=== PATIENT | male | born 1965 | race Caucasian/White ===

== ENCOUNTER 2019-05-09 10:03 | Emergency (ER) | payer SELFPAY ==
[2019-05-09 11:37] LABS: Hematocrit 37 % (42-52); Hemoglobin 12.5 g/dL (14.0-18.0); Mean Corpuscular HGB Conc 34 g/dL (31-36); Mean Corpuscular Hemoglobin 32 pg (27-31); Mean Corpuscular Volume 94 fL (80-94); Mean Platelet Volume 6.8 fL (7.4-10.4); Platelet Count 531 10^3/uL (150-450); Red Cell Distribution Width 15 % (10-15)
[2019-05-09 11:39] LABS: INR 1.33 (0.82-1.09)
[2019-05-09 11:55] LABS: ALT 180 U/L (7-52); Albumin 2.8 g/dL (3.2-5.2); Albumin/Globulin Ratio 0.7 (1-3); Alkaline Phosphatase 1270 U/L (34-104); BUN/Creatinine Ratio 12.7 (8-20); Blood Urea Nitrogen 17 mg/dL (6-24); CO2 Carbon Dioxide 22 mmol/L (22-32); Calcium 8.9 mg/dL (8.6-10.3); Chloride 101 mmol/L (101-111); EGFR African American 67.2 (>60); EGFR Non-African American 55.5 (>60); Globulin 3.8 g/dL (2-4); Glucose 115 mg/dL (70-100); Sodium 132 mmol/L (135-145); Total Protein 6.6 g/dL (6.4-8.9)
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
[2019-05-09] MEDS ORDERED: Iodixanol* (CONTRAST) 320 MG/ML 100 ML SDV IV ONE (12:02)
[2019-05-09 12:17] LABS: AST 203 U/L (13-39); Anion Gap 9 mmol/L (2-11); Potassium 3.7 mmol/L (3.5-5.0)
[2019-05-09 12:54] LABS: Acetaminophen < 15 mcg/mL
[2019-05-09] MEDS ORDERED: Piperacillin/Tazobac ADVAN(*) 3.375 GM in NS 0.9% 100 ML* 100 ML IVPB ONE (13:30)
[2019-05-09] MEDS ORDERED: Zosyn per Pharmacy* NOTE FOLLOW UP SCH (14:00)
[2019-05-09] MEDS ORDERED: NS 0.9% 100 ML* 100 ML ONE ×2 (14:06→14:27)
[2019-05-09] MEDS ORDERED: Zosyn per Pharmacy* NOTE FOLLOW UP PRN (14:12)
[2019-05-09 14:27] LABS: Hepatitis B Surface Antigen Nonreactive (Nonreactive)
[2019-05-09 14:44] LABS: Hepatitis B Surface Ab Not Immune (Immune); Hepatitis C Antibody Negative (Negative)
[2019-05-09] MEDS ORDERED: Zosyn 3.375 GM IV - ED ONCE IVPB ONE ×2 (15:00)
[2019-05-09 16:06] VITALS: BP 119/75
[2019-05-10 15:45] LABS: Hepatitis Be Antigen Negative (Negative)
[2019-05-10 17:05] LABS: Hepatitis Be Antibody Negative (Negative)
== END 2019-05-09 16:06 | disposition short-term general hospital (02) ==
LOC: ED 10:03
DX: E80.6 Other disorders of bilirubin metabolism (principal); K83.9 Disease of biliary tract, unspecified; Z87.891 Personal history of nicotine dependence
CPT/HCPCS: 36415; 70450; 74177; 80053; 80329; 85025; 85610; 86706; 86707; 86708; 86709; 86803; 87340; 87350; 96365; 99283; G0480; J2543; Q9967

== ENCOUNTER 2020-08-11 09:40 | Inpatient (IN) ==
[2020-08-11 10:45] LABS: Hematocrit 33 % (42-52); Hemoglobin 10.8 g/dL (14.0-18.0); Mean Corpuscular HGB Conc 33 g/dL (31-36); Mean Corpuscular Hemoglobin 30 pg (27-31); Mean Corpuscular Volume 92 fL (80-94); Mean Platelet Volume 7.3 fL (7.4-10.4); Platelet Count 483 10^3/uL (150-450); Red Blood Count 3.55 10^6 /uL (4.18-5.48); Red Cell Distribution Width 19 % (10-15); White Blood Count 9.1 10^3/uL (3.5-10.8)
[2020-08-11 11:01] LABS: Albumin 2.9 g/dL (3.2-5.2); Albumin/Globulin Ratio 1.2 (1-3); BUN/Creatinine Ratio 18.4 (8-20); Calcium 8.4 mg/dL (8.6-10.3); EGFR African American 110.2 (>60); EGFR Non-African American 91.1 (>60); Globulin 2.5 g/dL (2-4); Potassium 4.1 mmol/L (3.5-5.0); Total Bilirubin 0.6 mg/dL (0.2-1.0); Total Protein 5.4 g/dL (6.4-8.9)
[2020-08-11 11:03] LABS: Troponin I 0.01 ng/mL (<0.03)
[2020-08-11 11:05] LABS: ABS Basophils 0.1 10^3/ul (0-0.2); ABS Eosinophils 0.1 10^3/ul (0-0.6); ABS Lymphocytes 1.5 10^3/ul (1.0-4.8); ABS Monocytes 2.5 10^3/ul (0-0.8); ABS Neutrophils 4.8 10^3/ul (1.5-7.7); Eosinophil % 1.1 %; Lymphocyte % 16.4 %; Nucleated Red Blood Cells % 0.1
[2020-08-11] MEDS ORDERED: Iohexol 350 (CONTRAST) 500 ML MDV IV ONE (11:28)
[2020-08-11] MEDS ORDERED: cefTRIAXone 1 gm/50 mL NS BAG 1 GM/50 ML BAG IV ONE (13:57)
[2020-08-11] MEDS ORDERED: Polyethylene Glycol 3350 BTL 238 GM BTL PO PRN (13:58)
[2020-08-11 14:09] LABS: INR 1.65 (0.82-1.09)
[2020-08-11 14:36] LABS: Urine Appearance Clear; Urine Bilirubin Negative (Negative); Urine Blood Negative (Negative); Urine Color Yellow; Urine Glucose Negative (Negative); Urine Ketones Negative (Negative); Urine Nitrite Negative (Negative); Urine Protein Negative (Negative); Urine Specific Gravity 1.044 (1.010-1.030); Urine Urobilinogen Negative (Negative)
[2020-08-11 14:40] LABS: TSH Ultra Thyroid Stim Horm 1.87 mcIU/mL (0.34-5.60)
[2020-08-11] MEDS: Azithromycin 500 mg/250 ml NS 500 MG/250 ML BAG IVPB SCH (15:37)
[2020-08-12 07:01] LABS: BUN/Creatinine Ratio 19.1 (8-20); Calcium 8.1 mg/dL (8.6-10.3); EGFR African American 100.8 (>60); EGFR Non-African American 83.3 (>60)
[2020-08-12 07:11] LABS: Hematocrit 31 % (42-52); Hemoglobin 10.3 g/dL (14.0-18.0); Mean Corpuscular HGB Conc 33 g/dL (31-36); Mean Corpuscular Hemoglobin 31 pg (27-31); Mean Corpuscular Volume 91 fL (80-94); Mean Platelet Volume 7.3 fL (7.4-10.4); Platelet Count 499 10^3/uL (150-450); Red Blood Count 3.39 10^6 /uL (4.18-5.48); Red Cell Distribution Width 18 % (10-15); White Blood Count 9.5 10^3/uL (3.5-10.8)
[2020-08-12 08:30] LABS: ABS Basophils 0.1 10^3/ul (0-0.2); ABS Eosinophils 0.1 10^3/ul (0-0.6); ABS Lymphocytes 2.1 10^3/ul (1.0-4.8); ABS Monocytes 2.5 10^3/ul (0-0.8); ABS Neutrophils 4.7 10^3/ul (1.5-7.7); Eosinophil % 0.7 %; Lymphocyte % 21.7 %; Nucleated Red Blood Cells % 0.1
[2020-08-12] MEDS: Azithromycin 500 mg/250 ml NS 500 MG/250 ML BAG IVPB SCH (15:02)
[2020-08-12 17:00] LABS: C Reactive Protein 125.31 mg/L (<8.01)
[2020-08-12] MEDS: cefTRIAXone 1 gm/50 mL NS BAG 1 GM/50 ML BAG IVPB SCH (17:04)
[2020-08-12] MEDS: Albuterol HFA INHALER 8 gm MDI INH PRN (17:04)
[2020-08-13 10:27] LABS: Hematocrit 32 % (42-52); Hemoglobin 10.8 g/dL (14.0-18.0); Mean Corpuscular HGB Conc 33 g/dL (31-36); Mean Corpuscular Hemoglobin 30 pg (27-31); Mean Corpuscular Volume 91 fL (80-94); Mean Platelet Volume 7.2 fL (7.4-10.4); Platelet Count 627 10^3/uL (150-450); Red Blood Count 3.56 10^6 /uL (4.18-5.48); Red Cell Distribution Width 19 % (10-15); White Blood Count 11.6 10^3/uL (3.5-10.8)
[2020-08-13 10:31] LABS: INR 1.68 (0.82-1.09)
[2020-08-13] MEDS: Albuterol HFA INHALER 8 gm MDI INH PRN (10:38)
[2020-08-13 10:46] LABS: BUN/Creatinine Ratio 22.6 (8-20); Calcium 8.2 mg/dL (8.6-10.3); EGFR African American 102.1 (>60); EGFR Non-African American 84.4 (>60); Potassium 4.3 mmol/L (3.5-5.0)
[2020-08-13 11:46] LABS: ABS Basophils 0.1 10^3/ul (0-0.2); ABS Lymphocytes 1.7 10^3/ul (1.0-4.8); ABS Monocytes 2.3 10^3/ul (0-0.8); ABS Neutrophils 7.5 10^3/ul (1.5-7.7); Eosinophil % 0.2 %; Lymphocyte % 14.4 %; Nucleated Red Blood Cells % 0.2
[2020-08-13] MEDS: methylPREDNISolone 125 mg 2 ML VIAL IV SCH (12:14)
[2020-08-13] MEDS: Azithromycin 500 mg/250 ml NS 500 MG/250 ML BAG IVPB SCH (14:24)
[2020-08-13] MEDS: cefTRIAXone 1 gm/50 mL NS BAG 1 GM/50 ML BAG IVPB SCH (15:49)
[2020-08-13] MEDS ORDERED: Furosemide 20 mg/2 ml IV VIAL IV SLOW PU ONE (18:10)
[2020-08-13] MEDS ORDERED: Vancomycin 1,250 MG in NS 0.9% 250 ml 250 ML IVPB ONE (18:30)
[2020-08-13] MEDS ORDERED: Vancomycin per Pharmacy 1 EA NOTE FOLLOW UP PRN (18:53)
[2020-08-13] MEDS ORDERED: Albuterol 2.5mg/3 ml (0.083%) NEB.SOLN INH PRN (20:23)
[2020-08-13] MEDS: Cefepime 2 GM in Dextrose 2 GM/50 ML BAG IV SCH (21:41)
[2020-08-14] MEDS: methylPREDNISolone 125 mg 2 ML VIAL IV SCH ×2 (00:04→11:23)
[2020-08-14] MEDS: Vancomycin 1000 MG in NS 0.9% 250 ML IVPB SCH ×3 (02:03→19:15)
[2020-08-14 07:41] LABS: Hematocrit 34 % (42-52); Hemoglobin 11.3 g/dL (14.0-18.0); Mean Corpuscular HGB Conc 33 g/dL (31-36); Mean Corpuscular Hemoglobin 30 pg (27-31); Mean Corpuscular Volume 91 fL (80-94); Mean Platelet Volume 7.1 fL (7.4-10.4); Platelet Count 685 10^3/uL (150-450); Red Blood Count 3.74 10^6 /uL (4.18-5.48); Red Cell Distribution Width 18 % (10-15)
[2020-08-14 08:01] LABS: C Reactive Protein 130.52 mg/L (<8.01); Calcium 8.5 mg/dL (8.6-10.3); EGFR African American 121.4 (>60); EGFR Non-African American 100.4 (>60); Potassium 4.1 mmol/L (3.5-5.0)
[2020-08-14] MEDS: Polyethylene Glycol 3350 17 GM PACKET PO PRN (08:03)
[2020-08-14] MEDS: Cefepime 2 GM in Dextrose 2 GM/50 ML BAG IV SCH ×2 (08:03→20:48)
[2020-08-14 11:21] LABS: ABS Basophils 0.1 10^3/ul (0-0.2); ABS Lymphocytes 2.1 10^3/ul (1.0-4.8); ABS Monocytes 1.2 10^3/ul (0-0.8); ABS Neutrophils 14.6 10^3/ul (1.5-7.7); Lymphocyte % 11.5 %; Nucleated Red Blood Cells % 0.1
[2020-08-14] MEDS ORDERED: Vancomycin Trough Check NOTE FOLLOW UP ONE (17:30)
[2020-08-14] MEDS ORDERED: Vancomycin 1,250 MG in NS 0.9% 250 ml 250 ML IVPB SCH (20:00)
[2020-08-15] MEDS: methylPREDNISolone 125 mg 2 ML VIAL IV SCH ×3 (00:03→23:45)
[2020-08-15] MEDS: Vancomycin 1,250 MG in NS 0.9% 250 ml 250 ML IVPB SCH ×2 (04:00→12:18)
[2020-08-15 06:11] LABS: Hematocrit 33 % (42-52); Hemoglobin 10.6 g/dL (14.0-18.0); Mean Corpuscular HGB Conc 32 g/dL (31-36); Mean Corpuscular Hemoglobin 30 pg (27-31); Mean Corpuscular Volume 92 fL (80-94); Mean Platelet Volume 7.1 fL (7.4-10.4); Platelet Count 606 10^3/uL (150-450); Red Blood Count 3.58 10^6 /uL (4.18-5.48); Red Cell Distribution Width 19 % (10-15)
[2020-08-15 06:29] LABS: BUN/Creatinine Ratio 28.8 (8-20); Calcium 8.3 mg/dL (8.6-10.3); EGFR African American 121.4 (>60); EGFR Non-African American 100.4 (>60); Potassium 4.2 mmol/L (3.5-5.0)
[2020-08-15 06:32] LABS: ABS Basophils 0.1 10^3/ul (0-0.2); ABS Nucleated RBC 0.1 10^3/ul; Eosinophil % 0.1 %; Lymphocyte % 6.6 %; Nucleated Red Blood Cells % 0.2; Polychromasia 3+
[2020-08-15] MEDS: Cefepime 2 GM in Dextrose 2 GM/50 ML BAG IV SCH ×2 (07:43→20:35)
[2020-08-15] MEDS: Polyethylene Glycol 3350 17 GM PACKET PO PRN (07:45)
[2020-08-15] MEDS: Azithromycin 500 mg/250 ml NS 500 MG/250 ML BAG IVPB SCH (15:45)
[2020-08-15 17:10] LABS: Influenza A Molecular Negative (Negative); Influenza B Molecular Negative (Negative)
[2020-08-15] MEDS: Sulfamethox/Trimethoprim DS TAB 800/160 mg PO SCH (20:35)
[2020-08-15] MEDS: Heparin 5000 UNITS/ML 1 mL VIAL SUBCUT SCH (20:36)
[2020-08-16 05:54] LABS: Hematocrit 34 % (42-52); Mean Corpuscular HGB Conc 33 g/dL (31-36); Mean Corpuscular Hemoglobin 30 pg (27-31); Mean Corpuscular Volume 92 fL (80-94); Mean Platelet Volume 6.7 fL (7.4-10.4); Platelet Count 558 10^3/uL (150-450); Red Blood Count 3.66 10^6 /uL (4.18-5.48); Red Cell Distribution Width 19 % (10-15); White Blood Count 34.8 10^3/uL (3.5-10.8)
[2020-08-16] MEDS: Heparin 5000 UNITS/ML 1 mL VIAL SUBCUT SCH ×3 (06:05→20:33)
[2020-08-16 06:14] LABS: BUN/Creatinine Ratio 27.2 (8-20); C Reactive Protein 23.2 mg/L (<8.01); Calcium 8.1 mg/dL (8.6-10.3); EGFR African American 119.7 (>60); EGFR Non-African American 98.9 (>60); Potassium 4.1 mmol/L (3.5-5.0)
[2020-08-16 06:50] LABS: ABS Lymphocytes 2.5 10^3/ul (1.0-4.8); ABS Neutrophils 30.3 10^3/ul (1.5-7.7); ABS Nucleated RBC 0.1 10^3/ul; Lymphocyte % 7.2 %; Nucleated Red Blood Cells % 0.2
[2020-08-16] MEDS: Sulfamethox/Trimethoprim DS TAB 800/160 mg PO SCH ×2 (08:11→20:30)
[2020-08-16] MEDS: Cefepime 2 GM in Dextrose 2 GM/50 ML BAG IV SCH ×2 (08:12→20:34)
[2020-08-16] MEDS: Polyethylene Glycol 3350 17 GM PACKET PO PRN (08:18)
[2020-08-16] MEDS ORDERED: Vancomycin Trough Check NOTE FOLLOW UP ONE (11:30)
[2020-08-16] MEDS: methylPREDNISolone 125 mg 2 ML VIAL IV SCH (12:38)
[2020-08-16] MEDS: Azithromycin 500 mg/250 ml NS 500 MG/250 ML BAG IVPB SCH (15:52)
[2020-08-17] MEDS: methylPREDNISolone 125 mg 2 ML VIAL IV SCH ×2 (00:30→12:35)
[2020-08-17] MEDS: Heparin 5000 UNITS/ML 1 mL VIAL SUBCUT SCH ×3 (06:13→21:07)
[2020-08-17] MEDS: Sulfamethox/Trimethoprim DS TAB 800/160 mg PO SCH ×2 (08:30→21:06)
[2020-08-17] MEDS: Cefepime 2 GM in Dextrose 2 GM/50 ML BAG IV SCH ×2 (08:31→21:06)
[2020-08-17] MEDS: Polyethylene Glycol 3350 17 GM PACKET PO PRN (08:39)
[2020-08-17 10:26] LABS: Hematocrit 34 % (42-52); Hemoglobin 10.8 g/dL (14.0-18.0); Mean Corpuscular HGB Conc 32 g/dL (31-36); Mean Corpuscular Hemoglobin 30 pg (27-31); Mean Corpuscular Volume 92 fL (80-94); Platelet Count 493 10^3/uL (150-450); Red Blood Count 3.65 10^6 /uL (4.18-5.48); Red Cell Distribution Width 19 % (10-15); White Blood Count 33.5 10^3/uL (3.5-10.8)
[2020-08-17 10:42] LABS: BUN/Creatinine Ratio 27.1 (8-20); Calcium 7.7 mg/dL (8.6-10.3); EGFR African American 113.2 (>60); EGFR Non-African American 93.6 (>60); Magnesium 2.3 mg/dL (1.9-2.7)
[2020-08-17 10:55] LABS: ABS Lymphocytes 2.8 10^3/ul (1.0-4.8); ABS Monocytes 2.1 10^3/ul (0-0.8); ABS Neutrophils 28.6 10^3/ul (1.5-7.7); ABS Nucleated RBC 0.1 10^3/ul; Lymphocyte % 8.2 %; Nucleated Red Blood Cells % 0.2
[2020-08-17] MEDS: Azithromycin 500 mg/250 ml NS 500 MG/250 ML BAG IVPB SCH (15:31)
[2020-08-18] MEDS: Heparin 5000 UNITS/ML 1 mL VIAL SUBCUT SCH ×3 (05:51→21:20)
[2020-08-18 05:55] LABS: Hematocrit 34 % (42-52); Hemoglobin 10.9 g/dL (14.0-18.0); Mean Corpuscular HGB Conc 33 g/dL (31-36); Mean Corpuscular Hemoglobin 30 pg (27-31); Mean Corpuscular Volume 91 fL (80-94); Mean Platelet Volume 6.6 fL (7.4-10.4); Platelet Count 465 10^3/uL (150-450); Red Blood Count 3.68 10^6 /uL (4.18-5.48); Red Cell Distribution Width 19 % (10-15); White Blood Count 36.7 10^3/uL (3.5-10.8)
[2020-08-18 06:11] LABS: BUN/Creatinine Ratio 21.6 (8-20); Calcium 7.9 mg/dL (8.6-10.3); EGFR African American 91.8 (>60); EGFR Non-African American 75.8 (>60); Potassium 3.9 mmol/L (3.5-5.0)
[2020-08-18 06:25] LABS: Polychromasia 1+
[2020-08-18 06:26] LABS: ABS Basophils 0.1 10^3/ul (0-0.2); ABS Lymphocytes 3.5 10^3/ul (1.0-4.8); ABS Monocytes 3.6 10^3/ul (0-0.8); ABS Neutrophils 29.5 10^3/ul (1.5-7.7); ABS Nucleated RBC 0.1 10^3/ul; Eosinophil % 0.1 %; Lymphocyte % 9.6 %; Nucleated Red Blood Cells % 0.3
[2020-08-18] MEDS: Cefepime 2 GM in Dextrose 2 GM/50 ML BAG IV SCH ×2 (08:56→20:13)
[2020-08-18] MEDS: Sulfamethox/Trimethoprim DS TAB 800/160 mg PO SCH ×2 (08:57→21:19)
[2020-08-18 18:18] LABS: Adenovirus Negative (Negative); Bordetella parapertussis Negative (Negative); Bordetella pertussis Negative (Negative); Chlamydophila pneumoniae Negative (Negative); Coronavirus 229E Negative (Negative); Coronavirus HKU1 Negative (Negative); Coronavirus NL63 Negative (Negative); Coronavirus OC43 Negative (Negative); Human Metapneumovirus Negative (Negative); Human Rhinovirus/ Enterovirus Negative (Negative); Influenza A Negative (Negative); Influenza B Negative (Negative); Mycoplasmoides pneumoniae Negative (Negative); Parainfluenza Virus 1 Negative (Negative); Parainfluenza Virus 2 Negative (Negative); Parainfluenza Virus 3 Negative (Negative); Parainfluenza Virus 4 Negative (Negative); Respiratory Syncytial Virus Negative (Negative); Specimen Source NASOPHARYNGEAL SWAB
[2020-08-19] MEDS: Heparin 5000 UNITS/ML 1 mL VIAL SUBCUT SCH ×2 (06:20→13:01)
[2020-08-19] MEDS: Cefepime 2 GM in Dextrose 2 GM/50 ML BAG IV SCH (09:55)
[2020-08-19] MEDS: Sulfamethox/Trimethoprim DS TAB 800/160 mg PO SCH (10:00)
[2020-08-19 12:30] VITALS: BP 125/73
== END 2020-08-19 14:30 | disposition home or self-care (01) | DRG 139 ==
LOC: ED 09:40 → MED 09:40
PROVIDERS: ADMIT Hospitalist; ATTEND Internal Medicine

== ENCOUNTER 2020-09-02 23:40 | Inpatient (IN) ==
[2020-09-03] MEDS ORDERED: Azithromycin 500 mg/250 ml NS 500 MG/250 ML BAG IVPB ONE (00:03)
[2020-09-03] MEDS ORDERED: NS 0.9% 1000 ml BAG 2,040 ML IV ONE (00:03)
[2020-09-03] MEDS ORDERED: cefTRIAXone 1 gm/50 mL NS BAG 1 GM/50 ML BAG IV ONE (00:03)
[2020-09-03] MEDS ORDERED: Azithromycin 500 mg/250 ml NS 500 MG/250 ML BAG ONE (00:29)
[2020-09-03 00:49] LABS: Influenza A Molecular Negative (Negative); Influenza B Molecular Negative (Negative)
[2020-09-03 01:33] LABS: ALT 224 U/L (7-52); Albumin 3.1 g/dL (3.2-5.2); Alkaline Phosphatase 349 U/L (34-104); Anion Gap 8 mmol/L (2-11); BUN/Creatinine Ratio 19.6 (8-20); Blood Urea Nitrogen 19 mg/dL (6-24); CO2 Carbon Dioxide 22 mmol/L (22-32); Calcium 8.4 mg/dL (8.6-10.3); Chloride 103 mmol/L (101-111); EGFR African American 97.2 (>60); EGFR Non-African American 80.4 (>60); Globulin 3.1 g/dL (2-4); Glucose 135 mg/dL (70-100); Potassium 5.2 mmol/L (3.5-5.0); Sodium 133 mmol/L (135-145); Total Protein 6.2 g/dL (6.4-8.9)
[2020-09-03 01:34] LABS: AST 69 U/L (13-39); Ferritin 423.4 ng/mL (24-336); LDH 380 U/L (140-271); Troponin I 0.04 ng/mL (<0.03)
[2020-09-03 01:35] LABS: C Reactive Protein 82.09 mg/L (<8.01)
[2020-09-03 01:48] LABS: Activated Partial Thrombo Time 30.2 seconds (26.0-38.0); INR 1.31 (0.82-1.09)
[2020-09-03 01:59] LABS: Hematocrit 35 % (42-52); Hemoglobin 11.4 g/dL (14.0-18.0); Mean Corpuscular HGB Conc 33 g/dL (31-36); Mean Corpuscular Hemoglobin 31 pg (27-31); Mean Corpuscular Volume 94 fL (80-94); Mean Platelet Volume 7.1 fL (7.4-10.4); Platelet Count 150 10^3/uL (150-450); Red Blood Count 3.65 10^6 /uL (4.18-5.48); Red Cell Distribution Width 21 % (10-15); White Blood Count 24.9 10^3/uL (3.5-10.8)
[2020-09-03] MEDS ORDERED: methylPREDNISolone 125 mg 2 ML VIAL IV ONE (02:16)
[2020-09-03] MEDS ORDERED: Albuterol/Ipratropium NEB.SOL (2.5/0.5 MG) 3 ML NEB.SOLN INH PRN (02:20)
[2020-09-03] MEDS ORDERED: Levalbuterol HFA INHALER MDI INH PRN (02:22)
[2020-09-03] MEDS ORDERED: Iohexol 350 (CONTRAST) 500 ML MDV IV ONE ×2 (02:26→03:08)
[2020-09-03 02:53] LABS: ABS Basophils 0.3 10^3/ul (0-0.2); ABS Eosinophils 0.1 10^3/ul (0-0.6); ABS Lymphocytes 0.3 10^3/ul (1.0-4.8); ABS Monocytes 0.7 10^3/ul (0-0.8); ABS Neutrophils 23.5 10^3/ul (1.5-7.7)
[2020-09-03 02:54] LABS: Eosinophil % 0.6 %; Lymphocyte % 1.1 %
[2020-09-03] MEDS ORDERED: Cefepime 2 GM in Dextrose 2 GM/50 ML BAG IV SCH ×2 (03:00→14:00)
[2020-09-03 03:04] LABS: Amylase 22 U/L (29-103)
[2020-09-03 03:10] LABS: Lipase 18 U/L (11.0-82.0)
[2020-09-03 03:59] LABS: Troponin I 0.06 ng/mL (<0.03)
[2020-09-03] MEDS ORDERED: NS 0.9% 1000 ml BAG 1,000 ML IV ONE ×2 (04:02→06:02)
[2020-09-03] MEDS ORDERED: Cefepime 2 GM IV - ED ONCE IV ONE (05:00)
[2020-09-03] MEDS ORDERED: Vancomycin 1,250 MG in NS 0.9% 250 ml 250 ML IVPB ONE (05:30)
[2020-09-03 05:54] LABS: ALT 170 U/L (7-52); AST 52 U/L (13-39); Albumin 2.6 g/dL (3.2-5.2); Alkaline Phosphatase 284 U/L (34-104); Globulin 2.5 g/dL (2-4); Indirect Bilirubin 1.4 mg/dL (0.3-1.0); Total Protein 5.1 g/dL (6.4-8.9)
[2020-09-03 05:58] LABS: Troponin I 0.05 ng/mL (<0.03)
[2020-09-03] MEDS ORDERED: Vancomycin per Pharmacy 1 EA NOTE FOLLOW UP PRN (06:39)
[2020-09-03 07:37] LABS: Urine Appearance Clear; Urine Bilirubin Negative (Negative); Urine Blood 2+ (Negative); Urine Color Amber; Urine Glucose Negative (Negative); Urine Ketones Negative (Negative); Urine Nitrite Negative (Negative); Urine Protein Negative (Negative); Urine Specific Gravity 1.029 (1.010-1.030); Urine Urobilinogen Negative (Negative)
[2020-09-03 07:41] LABS: Urine Bacteria Absent (Absent); Urine Red Blood Cell 3+(>10/hpf) (Absent); Urine White Blood Cell Trace(0-5/hpf) (Absent)
[2020-09-03] MEDS: Enoxaparin 40 MG/0.4 ML SYR SUBCUT SCH (08:26)
[2020-09-03] MEDS ORDERED: methylPREDNISolone SOD 40 mg/ml 1 ml VIAL IV SCH (10:00)
[2020-09-03 10:57] LABS: BUN/Creatinine Ratio 17.6 (8-20); Calcium 7.5 mg/dL (8.6-10.3); EGFR African American 104.7 (>60); EGFR Non-African American 86.5 (>60); Potassium 4.4 mmol/L (3.5-5.0)
[2020-09-03] MEDS ORDERED: Piperacillin/Tazobac ADVAN 3.375 GM in NS 0.9% 100 ml BAG 100 ML IV ONE (11:00)
[2020-09-03] MEDS ORDERED: Zosyn per Pharmacy NOTE FOLLOW UP SCH (11:00)
[2020-09-03 11:25] LABS: Hematocrit 31 % (42-52); Mean Corpuscular HGB Conc 32 g/dL (31-36); Mean Corpuscular Hemoglobin 31 pg (27-31); Mean Corpuscular Volume 97 fL (80-94); Mean Platelet Volume 7.5 fL (7.4-10.4); Platelet Count 110 10^3/uL (150-450); Red Blood Count 3.21 10^6 /uL (4.18-5.48); Red Cell Distribution Width 22 % (10-15); White Blood Count 46.4 10^3/uL (3.5-10.8)
[2020-09-03 12:16] LABS: ABS Basophils 0.1 10^3/ul (0-0.2); ABS Lymphocytes 0.3 10^3/ul (1.0-4.8); ABS Monocytes 1.1 10^3/ul (0-0.8); Lymphocyte % 0.6 %
[2020-09-03] MEDS: ZOSYN 3.375 GM Q8H per EXTENDED INFUSION IV SCH ×2 (13:59→23:29)
[2020-09-03] MEDS ORDERED: Vancomycin 750 MG in NS 0.9% 250 ML IVPB SCH (14:30)
[2020-09-04] MEDS ORDERED: Azithromycin 500 mg/250 ml NS 500 MG/250 ML BAG IVPB SCH ×2 (01:00)
[2020-09-04 06:01] LABS: ABS Basophils 0.1 10^3/ul (0-0.2); ABS Lymphocytes 0.6 10^3/ul (1.0-4.8); ABS Monocytes 1.7 10^3/ul (0-0.8); ABS Neutrophils 31.8 10^3/ul (1.5-7.7); Hematocrit 29 % (42-52); Hemoglobin 9.2 g/dL (14.0-18.0); Lymphocyte % 1.9 %; Mean Corpuscular HGB Conc 32 g/dL (31-36); Mean Corpuscular Hemoglobin 30 pg (27-31); Mean Corpuscular Volume 96 fL (80-94); Mean Platelet Volume 7.2 fL (7.4-10.4); Platelet Count 75 10^3/uL (150-450); Red Blood Count 3.03 10^6 /uL (4.18-5.48); Red Cell Distribution Width 22 % (10-15); White Blood Count 34.2 10^3/uL (3.5-10.8)
[2020-09-04 06:12] LABS: Albumin 2.5 g/dL (3.2-5.2); Albumin/Globulin Ratio 0.9 (1-3); BUN/Creatinine Ratio 23.9 (8-20); Calcium 7.9 mg/dL (8.6-10.3); EGFR African American 108.8 (>60); EGFR Non-African American 89.9 (>60); Globulin 2.8 g/dL (2-4); Phosphorus 2.9 mg/dL (2.5-5.0); Potassium 4.6 mmol/L (3.5-5.0); Total Bilirubin 4.5 mg/dL (0.2-1.0); Total Protein 5.3 g/dL (6.4-8.9)
[2020-09-04] MEDS: ZOSYN 3.375 GM Q8H per EXTENDED INFUSION IV SCH ×3 (07:27→23:45)
[2020-09-04] MEDS: Enoxaparin 40 MG/0.4 ML SYR SUBCUT SCH (08:44)
[2020-09-04] MEDS ORDERED: Vancomycin Trough Check NOTE FOLLOW UP ONE (14:00)
[2020-09-04] MEDS: Polyethylene Glycol 3350 17 GM PACKET PO SCH (17:20)
[2020-09-05 05:26] LABS: ABS Basophils 0.1 10^3/ul (0-0.2); ABS Lymphocytes 0.8 10^3/ul (1.0-4.8); ABS Monocytes 1.3 10^3/ul (0-0.8); ABS Neutrophils 17.7 10^3/ul (1.5-7.7); Eosinophil % 0.2 %; Hematocrit 30 % (42-52); Hemoglobin 9.8 g/dL (14.0-18.0); Lymphocyte % 4.1 %; Mean Corpuscular HGB Conc 33 g/dL (31-36); Mean Corpuscular Hemoglobin 31 pg (27-31); Mean Corpuscular Volume 95 fL (80-94); Mean Platelet Volume 8.2 fL (7.4-10.4); Platelet Count 70 10^3/uL (150-450); Red Blood Count 3.16 10^6 /uL (4.18-5.48); Red Cell Distribution Width 21 % (10-15); White Blood Count 19.9 10^3/uL (3.5-10.8)
[2020-09-05 05:38] LABS: Albumin 2.4 g/dL (3.2-5.2); Albumin/Globulin Ratio 0.9 (1-3); BUN/Creatinine Ratio 21.2 (8-20); Calcium 8.1 mg/dL (8.6-10.3); EGFR African American 113.2 (>60); EGFR Non-African American 93.6 (>60); Globulin 2.7 g/dL (2-4); Potassium 4.3 mmol/L (3.5-5.0); Total Bilirubin 5.1 mg/dL (0.2-1.0); Total Protein 5.1 g/dL (6.4-8.9)
[2020-09-05] MEDS: Polyethylene Glycol 3350 17 GM PACKET PO SCH (07:45)
[2020-09-05] MEDS: ZOSYN 3.375 GM Q8H per EXTENDED INFUSION IV SCH ×3 (07:45→23:05)
[2020-09-05] MEDS: Enoxaparin 40 MG/0.4 ML SYR SUBCUT SCH (07:45)
[2020-09-05] MEDS ORDERED: fentaNYL 100 mcg/2 ml 50 MCG/ML VIAL ONE ×2 (13:48→17:05)
[2020-09-05] MEDS ORDERED: Midazolam 2 mg/2 ml VIAL 1 mg/ml 2 ml VIAL (2 mg) ONE (13:48)
[2020-09-05] MEDS ORDERED: Ketamine HCL 50 mg/ml 10 ml VIAL (500 MG) ONE (13:49)
[2020-09-05] MEDS ORDERED: Propofol 10 MG/ML 20 ML BTL ONE ×2 (13:49→17:22)
[2020-09-05] MEDS ORDERED: Lidocaine 2% PF 5 ML VIAL ONE (13:54)
[2020-09-05] MEDS ORDERED: DiMENhydriNATE IV 50 mg/ml 1 ml VIAL IV PUSH PRN (14:06)
[2020-09-05] MEDS ORDERED: oxyCODONE/Acetamin 5/325 mg TAB PO PRN (14:06)
[2020-09-05] MEDS ORDERED: Ondansetron 4 mg VIAL 2 MG/ML 2 ml VIAL IV PRN (14:06)
[2020-09-05] MEDS ORDERED: fentaNYL 100 mcg/2 ml 50 MCG/ML VIAL IV PRN (14:06)
[2020-09-05] MEDS ORDERED: Naloxone 0.4 mg VIAL 0.4 mg/ml 1 ml VIAL IV PRN (14:06)
[2020-09-06 04:52] LABS: ABS Basophils 0.1 10^3/ul (0-0.2); ABS Eosinophils 0.3 10^3/ul (0-0.6); ABS Lymphocytes 1.9 10^3/ul (1.0-4.8); ABS Monocytes 0.8 10^3/ul (0-0.8); ABS Neutrophils 7.2 10^3/ul (1.5-7.7); Eosinophil % 2.7 %; Hematocrit 31 % (42-52); Hemoglobin 10.1 g/dL (14.0-18.0); Lymphocyte % 18.4 %; Mean Corpuscular HGB Conc 33 g/dL (31-36); Mean Corpuscular Hemoglobin 31 pg (27-31); Mean Corpuscular Volume 94 fL (80-94); Mean Platelet Volume 8.6 fL (7.4-10.4); Platelet Count 78 10^3/uL (150-450); Red Blood Count 3.26 10^6 /uL (4.18-5.48); Red Cell Distribution Width 21 % (10-15); White Blood Count 10.3 10^3/uL (3.5-10.8)
[2020-09-06 05:02] LABS: Albumin 2.3 g/dL (3.2-5.2); Albumin/Globulin Ratio 0.9 (1-3); BUN/Creatinine Ratio 19.5 (8-20); Calcium 8.1 mg/dL (8.6-10.3); EGFR African American 126.9 (>60); EGFR Non-African American 104.9 (>60); Globulin 2.7 g/dL (2-4); Magnesium 1.8 mg/dL (1.9-2.7); Phosphorus 2.4 mg/dL (2.5-5.0); Potassium 4.1 mmol/L (3.5-5.0); Total Bilirubin 4.8 mg/dL (0.2-1.0)
[2020-09-06] MEDS ORDERED: Magnesium Sulfate 2 gm BAG 2 GM/50 ML BAG IVPB ONE (07:25)
[2020-09-06] MEDS: Polyethylene Glycol 3350 17 GM PACKET PO SCH (09:33)
[2020-09-06] MEDS: Enoxaparin 40 MG/0.4 ML SYR SUBCUT SCH (09:33)
[2020-09-06] MEDS: ZOSYN 3.375 GM Q8H per EXTENDED INFUSION IV SCH ×3 (09:33→23:47)
[2020-09-07 05:46] LABS: Hematocrit 30 % (42-52); Hemoglobin 10.3 g/dL (14.0-18.0); Mean Corpuscular HGB Conc 34 g/dL (31-36); Mean Corpuscular Hemoglobin 31 pg (27-31); Mean Corpuscular Volume 92 fL (80-94); Mean Platelet Volume 8.6 fL (7.4-10.4); Platelet Count 87 10^3/uL (150-450); Red Cell Distribution Width 21 % (10-15); White Blood Count 10.1 10^3/uL (3.5-10.8)
[2020-09-07 06:03] LABS: Albumin 2.3 g/dL (3.2-5.2); Albumin/Globulin Ratio 0.8 (1-3); BUN/Creatinine Ratio 17.3 (8-20); C Reactive Protein 60.33 mg/L (<8.01); Calcium 7.8 mg/dL (8.6-10.3); EGFR African American 130.8 (>60); EGFR Non-African American 108.1 (>60); Globulin 2.8 g/dL (2-4); Potassium 3.9 mmol/L (3.5-5.0); Total Bilirubin 3.6 mg/dL (0.2-1.0); Total Protein 5.1 g/dL (6.4-8.9)
[2020-09-07] MEDS: ZOSYN 3.375 GM Q8H per EXTENDED INFUSION IV SCH ×2 (08:59→16:45)
[2020-09-07] MEDS: Enoxaparin 40 MG/0.4 ML SYR SUBCUT SCH (11:25)
[2020-09-07] MEDS: Polyethylene Glycol 3350 17 GM PACKET PO SCH (11:29)
[2020-09-08] MEDS: Aztreonam 2 GM in NS 0.9% 100 ml BAG 100 ML IV SCH ×4 (00:21→23:36)
[2020-09-08] MEDS: diPHENhydraMINE 25 mg TAB PO PRN (00:28)
[2020-09-08] MEDS: Polyethylene Glycol 3350 17 GM PACKET PO SCH (07:45)
[2020-09-08] MEDS: Enoxaparin 40 MG/0.4 ML SYR SUBCUT SCH (07:45)
[2020-09-08 08:53] LABS: Hematocrit 31 % (42-52); Hemoglobin 10.2 g/dL (14.0-18.0); Mean Corpuscular HGB Conc 33 g/dL (31-36); Mean Corpuscular Hemoglobin 30 pg (27-31); Mean Corpuscular Volume 91 fL (80-94); Mean Platelet Volume 8.3 fL (7.4-10.4); Platelet Count 124 10^3/uL (150-450); Red Blood Count 3.37 10^6 /uL (4.18-5.48); Red Cell Distribution Width 21 % (10-15); White Blood Count 11.8 10^3/uL (3.5-10.8)
[2020-09-08 09:05] LABS: Albumin 2.4 g/dL (3.2-5.2); Albumin/Globulin Ratio 0.8 (1-3); BUN/Creatinine Ratio 17.8 (8-20); Calcium 8.1 mg/dL (8.6-10.3); EGFR Non-African American 111.6 (>60); Potassium 3.8 mmol/L (3.5-5.0); Total Bilirubin 3.4 mg/dL (0.2-1.0); Total Protein 5.4 g/dL (6.4-8.9)
[2020-09-08 09:23] LABS: ABS Basophils 0.1 10^3/ul (0-0.2); ABS Eosinophils 0.5 10^3/ul (0-0.6); ABS Lymphocytes 1.4 10^3/ul (1.0-4.8); ABS Monocytes 1.2 10^3/ul (0-0.8); ABS Neutrophils 8.6 10^3/ul (1.5-7.7); Eosinophil % 4.4 %
[2020-09-09 06:50] LABS: Hematocrit 31 % (42-52); Hemoglobin 10.3 g/dL (14.0-18.0); Mean Corpuscular HGB Conc 33 g/dL (31-36); Mean Corpuscular Hemoglobin 31 pg (27-31); Mean Corpuscular Volume 93 fL (80-94); Mean Platelet Volume 7.9 fL (7.4-10.4); Platelet Count 145 10^3/uL (150-450); Red Blood Count 3.33 10^6 /uL (4.18-5.48); Red Cell Distribution Width 21 % (10-15); White Blood Count 10.5 10^3/uL (3.5-10.8)
[2020-09-09 07:04] LABS: Albumin 2.5 g/dL (3.2-5.2); Albumin/Globulin Ratio 0.8 (1-3); Indirect Bilirubin 1.3 mg/dL (0.3-1.0); Total Bilirubin 3.7 mg/dL (0.2-1.0); Total Protein 5.5 g/dL (6.4-8.9)
[2020-09-09] MEDS: Polyethylene Glycol 3350 17 GM PACKET PO SCH (09:09)
[2020-09-09] MEDS: diPHENhydraMINE 25 mg TAB PO PRN (09:09)
[2020-09-09] MEDS: Aztreonam 2 GM in NS 0.9% 100 ml BAG 100 ML IV SCH (09:09)
[2020-09-09] MEDS: Enoxaparin 40 MG/0.4 ML SYR SUBCUT SCH (09:18)
[2020-09-09] MEDS ORDERED: Magnesium Hydroxide LIQ 30 ML UDC PO ONE (16:22)
[2020-09-09 18:17] LABS: C Reactive Protein 50.27 mg/L (<8.01)
[2020-09-09] MEDS ORDERED: Iohexol 300 (CONTRAST) 10 ML SDV IV ONE (20:45)
[2020-09-09] MEDS: Cefepime 2 GM in Dextrose 2 GM/50 ML BAG IV SCH (21:28)
[2020-09-10 05:03] LABS: ABS Basophils 0.1 10^3/ul (0-0.2); ABS Eosinophils 0.1 10^3/ul (0-0.6); ABS Lymphocytes 3.3 10^3/ul (1.0-4.8); ABS Monocytes 0.7 10^3/ul (0-0.8); ABS Neutrophils 17.4 10^3/ul (1.5-7.7); Eosinophil % 0.4 %; Hematocrit 31 % (42-52); Hemoglobin 10.3 g/dL (14.0-18.0); Lymphocyte % 15.4 %; Mean Corpuscular HGB Conc 34 g/dL (31-36); Mean Corpuscular Hemoglobin 31 pg (27-31); Mean Corpuscular Volume 92 fL (80-94); Mean Platelet Volume 8.7 fL (7.4-10.4); Platelet Count 193 10^3/uL (150-450); Red Blood Count 3.32 10^6 /uL (4.18-5.48); Red Cell Distribution Width 21 % (10-15); White Blood Count 21.7 10^3/uL (3.5-10.8)
[2020-09-10 05:22] LABS: Albumin 2.5 g/dL (3.2-5.2); Albumin/Globulin Ratio 0.8 (1-3); BUN/Creatinine Ratio 14.9 (8-20); Calcium 8.3 mg/dL (8.6-10.3); EGFR African American 132.9 (>60); EGFR Non-African American 109.8 (>60); Total Bilirubin 5.6 mg/dL (0.2-1.0); Total Protein 5.5 g/dL (6.4-8.9)
[2020-09-10] MEDS ORDERED: Lactated Ringers 1000 ml BAG 1,000 ML IV ONE (07:31)
[2020-09-10] MEDS: Cefepime 2 GM in Dextrose 2 GM/50 ML BAG IV SCH ×2 (08:01→22:26)
[2020-09-10] MEDS: Polyethylene Glycol 3350 17 GM PACKET PO SCH (08:02)
[2020-09-10 08:41] LABS: Indirect Bilirubin 1.7 mg/dL (0.3-1.0)
[2020-09-10] MEDS: Enoxaparin 40 MG/0.4 ML SYR SUBCUT SCH (09:40)
[2020-09-10] MEDS ORDERED: Senna TAB 8.6 mg TAB PO PRN (22:13)
[2020-09-10] MEDS: Magnesium Hydroxide LIQ 30 ML UDC PO PRN (22:26)
[2020-09-11] MEDS: Linezolid 600 MG/ 300 ML IVPB SCH ×2 (02:08→13:15)
[2020-09-11 05:53] LABS: INR 1.53 (0.82-1.09)
[2020-09-11 06:08] LABS: Albumin 2.4 g/dL (3.2-5.2); Albumin/Globulin Ratio 0.8 (1-3); BUN/Creatinine Ratio 14.1 (8-20); Calcium 8.1 mg/dL (8.6-10.3); EGFR African American 139.4 (>60); EGFR Non-African American 115.2 (>60); Globulin 3.1 g/dL (2-4); Potassium 3.7 mmol/L (3.5-5.0); Total Protein 5.5 g/dL (6.4-8.9)
[2020-09-11 06:09] LABS: Hematocrit 31 % (42-52); Hemoglobin 10.1 g/dL (14.0-18.0); Mean Corpuscular HGB Conc 33 g/dL (31-36); Mean Corpuscular Hemoglobin 30 pg (27-31); Mean Corpuscular Volume 92 fL (80-94); Mean Platelet Volume 8.6 fL (7.4-10.4); Platelet Count 210 10^3/uL (150-450); Red Blood Count 3.34 10^6 /uL (4.18-5.48); Red Cell Distribution Width 21 % (10-15); White Blood Count 12.6 10^3/uL (3.5-10.8)
[2020-09-11 06:30] LABS: ABS Basophils 0.1 10^3/ul (0-0.2); ABS Eosinophils 0.3 10^3/ul (0-0.6); ABS Lymphocytes 3.5 10^3/ul (1.0-4.8); ABS Monocytes 0.6 10^3/ul (0-0.8); ABS Neutrophils 8.1 10^3/ul (1.5-7.7); Eosinophil % 2.2 %; Nucleated Red Blood Cells % 0.1
[2020-09-11] MEDS: Cefepime 2 GM in Dextrose 2 GM/50 ML BAG IV SCH ×2 (10:08→21:38)
[2020-09-11] MEDS: Polyethylene Glycol 3350 17 GM PACKET PO SCH (10:27)
[2020-09-11] MEDS: Enoxaparin 40 MG/0.4 ML SYR SUBCUT SCH (10:27)
[2020-09-11] MEDS: Magnesium Hydroxide LIQ 30 ML UDC PO PRN (21:38)
[2020-09-12] MEDS ORDERED: Ondansetron 4 mg VIAL 2 MG/ML 2 ml VIAL IV PRN (00:36)
[2020-09-12] MEDS: Linezolid 600 MG/ 300 ML IVPB SCH ×2 (01:16→13:44)
[2020-09-12 06:04] LABS: Hematocrit 30 % (42-52); Hemoglobin 9.9 g/dL (14.0-18.0); Mean Corpuscular HGB Conc 33 g/dL (31-36); Mean Corpuscular Hemoglobin 31 pg (27-31); Mean Corpuscular Volume 93 fL (80-94); Mean Platelet Volume 8.4 fL (7.4-10.4); Platelet Count 246 10^3/uL (150-450); Red Blood Count 3.24 10^6 /uL (4.18-5.48); Red Cell Distribution Width 21 % (10-15); White Blood Count 8.8 10^3/uL (3.5-10.8)
[2020-09-12 06:15] LABS: Albumin 2.4 g/dL (3.2-5.2); Albumin/Globulin Ratio 0.8 (1-3); BUN/Creatinine Ratio 12.3 (8-20); EGFR Non-African American 111.6 (>60); Globulin 3.1 g/dL (2-4); Potassium 3.7 mmol/L (3.5-5.0); Total Bilirubin 4.2 mg/dL (0.2-1.0); Total Protein 5.5 g/dL (6.4-8.9)
[2020-09-12 06:41] LABS: ABS Eosinophils 0.3 10^3/ul (0-0.6); ABS Lymphocytes 3.4 10^3/ul (1.0-4.8); ABS Monocytes 0.5 10^3/ul (0-0.8); ABS Neutrophils 4.6 10^3/ul (1.5-7.7); Eosinophil % 3.3 %
[2020-09-12] MEDS: Enoxaparin 40 MG/0.4 ML SYR SUBCUT SCH (10:44)
[2020-09-12] MEDS: Cefepime 2 GM in Dextrose 2 GM/50 ML BAG IV SCH ×2 (10:45→22:34)
[2020-09-12] MEDS: Polyethylene Glycol 3350 17 GM PACKET PO SCH (11:01)
[2020-09-12] MEDS: Magnesium Hydroxide LIQ 30 ML UDC PO PRN (22:34)
[2020-09-13] MEDS: Linezolid 600 MG/ 300 ML IVPB SCH ×2 (01:10→13:16)
[2020-09-13] MEDS: diPHENhydraMINE 25 mg TAB PO PRN (04:11)
[2020-09-13 06:37] LABS: Albumin 2.6 g/dL (3.2-5.2); Albumin/Globulin Ratio 0.8 (1-3); BUN/Creatinine Ratio 15.5 (8-20); Calcium 8.3 mg/dL (8.6-10.3); EGFR African American 139.4 (>60); EGFR Non-African American 115.2 (>60); Globulin 3.4 g/dL (2-4); Total Bilirubin 3.4 mg/dL (0.2-1.0)
[2020-09-13 06:50] LABS: ABS Basophils 0.1 10^3/ul (0-0.2); ABS Eosinophils 0.2 10^3/ul (0-0.6); ABS Lymphocytes 2.9 10^3/ul (1.0-4.8); ABS Monocytes 0.7 10^3/ul (0-0.8); ABS Neutrophils 6.7 10^3/ul (1.5-7.7); Eosinophil % 2.2 %; Hematocrit 31 % (42-52); Hemoglobin 10.2 g/dL (14.0-18.0); Lymphocyte % 27.8 %; Mean Corpuscular HGB Conc 33 g/dL (31-36); Mean Corpuscular Hemoglobin 31 pg (27-31); Mean Corpuscular Volume 92 fL (80-94); Platelet Count 287 10^3/uL (150-450); Red Blood Count 3.33 10^6 /uL (4.18-5.48); Red Cell Distribution Width 21 % (10-15); White Blood Count 10.6 10^3/uL (3.5-10.8)
[2020-09-13] MEDS: Polyethylene Glycol 3350 17 GM PACKET PO SCH (09:08)
[2020-09-13] MEDS: Cefepime 2 GM in Dextrose 2 GM/50 ML BAG IV SCH ×2 (09:13→21:21)
[2020-09-13] MEDS: Enoxaparin 40 MG/0.4 ML SYR SUBCUT SCH (09:13)
[2020-09-13] MEDS: Magnesium Hydroxide LIQ 30 ML UDC PO PRN (21:29)
[2020-09-14] MEDS: Linezolid 600 MG/ 300 ML IVPB SCH ×2 (01:04→13:05)
[2020-09-14] MEDS: Polyethylene Glycol 3350 17 GM PACKET PO SCH (05:56)
[2020-09-14 05:58] LABS: ABS Basophils 0.1 10^3/ul (0-0.2); ABS Eosinophils 0.3 10^3/ul (0-0.6); ABS Lymphocytes 1.6 10^3/ul (1.0-4.8); ABS Monocytes 0.8 10^3/ul (0-0.8); ABS Neutrophils 8.7 10^3/ul (1.5-7.7); Hematocrit 31 % (42-52); Hemoglobin 10.4 g/dL (14.0-18.0); Lymphocyte % 13.9 %; Mean Corpuscular HGB Conc 33 g/dL (31-36); Mean Corpuscular Hemoglobin 30 pg (27-31); Mean Corpuscular Volume 91 fL (80-94); Mean Platelet Volume 7.9 fL (7.4-10.4); Platelet Count 353 10^3/uL (150-450); Red Blood Count 3.43 10^6 /uL (4.18-5.48); Red Cell Distribution Width 21 % (10-15); White Blood Count 11.5 10^3/uL (3.5-10.8)
[2020-09-14 06:13] LABS: Albumin 2.7 g/dL (3.2-5.2); Albumin/Globulin Ratio 0.8 (1-3); BUN/Creatinine Ratio 17.6 (8-20); Calcium 8.5 mg/dL (8.6-10.3); EGFR African American 146.5 (>60); EGFR Non-African American 121.1 (>60); Globulin 3.4 g/dL (2-4); Potassium 4.2 mmol/L (3.5-5.0); Total Bilirubin 3.2 mg/dL (0.2-1.0); Total Protein 6.1 g/dL (6.4-8.9)
[2020-09-14] MEDS: Enoxaparin 40 MG/0.4 ML SYR SUBCUT SCH (08:38)
[2020-09-14] MEDS: Cefepime 2 GM in Dextrose 2 GM/50 ML BAG IV SCH ×2 (08:39→20:35)
[2020-09-14] MEDS: Magnesium Hydroxide LIQ 30 ML UDC PO PRN (20:44)
[2020-09-15] MEDS: Linezolid 600 MG/ 300 ML IVPB SCH ×3 (01:52→22:01)
[2020-09-15] MEDS: Polyethylene Glycol 3350 17 GM PACKET PO SCH (05:16)
[2020-09-15 05:34] LABS: ABS Basophils 0.1 10^3/ul (0-0.2); ABS Eosinophils 0.2 10^3/ul (0-0.6); ABS Lymphocytes 1.6 10^3/ul (1.0-4.8); ABS Monocytes 0.9 10^3/ul (0-0.8); ABS Neutrophils 8.6 10^3/ul (1.5-7.7); Eosinophil % 2.1 %; Hematocrit 31 % (42-52); Hemoglobin 10.2 g/dL (14.0-18.0); Lymphocyte % 13.9 %; Mean Corpuscular HGB Conc 33 g/dL (31-36); Mean Corpuscular Hemoglobin 31 pg (27-31); Mean Corpuscular Volume 92 fL (80-94); Mean Platelet Volume 7.7 fL (7.4-10.4); Platelet Count 380 10^3/uL (150-450); Red Blood Count 3.33 10^6 /uL (4.18-5.48); Red Cell Distribution Width 21 % (10-15); White Blood Count 11.4 10^3/uL (3.5-10.8)
[2020-09-15 05:47] LABS: Albumin 2.8 g/dL (3.2-5.2); Albumin/Globulin Ratio 0.8 (1-3); BUN/Creatinine Ratio 17.6 (8-20); Calcium 8.6 mg/dL (8.6-10.3); EGFR African American 146.5 (>60); EGFR Non-African American 121.1 (>60); Globulin 3.5 g/dL (2-4); Potassium 4.2 mmol/L (3.5-5.0); Total Bilirubin 2.9 mg/dL (0.2-1.0); Total Protein 6.3 g/dL (6.4-8.9)
[2020-09-15] MEDS: Cefepime 2 GM in Dextrose 2 GM/50 ML BAG IV SCH ×2 (08:30→21:08)
[2020-09-15] MEDS: Enoxaparin 40 MG/0.4 ML SYR SUBCUT SCH (08:30)
[2020-09-16] MEDS: Polyethylene Glycol 3350 17 GM PACKET PO SCH (06:27)
[2020-09-16 08:11] VITALS: BP 124/78
[2020-09-16] MEDS: Enoxaparin 40 MG/0.4 ML SYR SUBCUT SCH (08:50)
[2020-09-16] MEDS: Linezolid 600 MG/ 300 ML IVPB SCH (10:47)
== END 2020-09-16 13:07 | disposition home or self-care (01) | DRG 720 ==
LOC: ED 23:40 → ICU 09-03 03:51 → SUATTDRO 09-03 03:51 → ICU 09-03 05:22 → MEDTELE 09-06 17:22 → MED 09-07 00:40
PROVIDERS: ADMIT Internal Medicine; ATTEND Internal Medicine

== ENCOUNTER 2020-10-08 13:29 | Inpatient (IN) ==
[2020-10-08] MEDS ORDERED: Alteplase (CATHFLO) 2 MG VIAL ONE (14:14)
[2020-10-08] MEDS ORDERED: Sterile Water for Inj 10 ML ONE (14:15)
[2020-10-08 14:17] LABS: Hematocrit 29 % (42-52); Hemoglobin 9.6 g/dL (14.0-18.0); Mean Corpuscular HGB Conc 33 g/dL (31-36); Mean Corpuscular Hemoglobin 29 pg (27-31); Mean Corpuscular Volume 89 fL (80-94); Mean Platelet Volume 6.8 fL (7.4-10.4); Platelet Count 427 10^3/uL (150-450); Red Blood Count 3.26 10^6 /uL (4.18-5.48); Red Cell Distribution Width 20 % (10-15); White Blood Count 21.9 10^3/uL (3.5-10.8)
[2020-10-08 14:20] LABS: ABS Basophils 0.1 10^3/ul (0-0.2); ABS Eosinophils 0.4 10^3/ul (0-0.6); ABS Monocytes 2.1 10^3/ul (0-0.8); ABS Neutrophils 17.3 10^3/ul (1.5-7.7); Eosinophil % 1.8 %; Lymphocyte % 9.2 %
[2020-10-08 14:57] LABS: Albumin 3.1 g/dL (3.2-5.2); BUN/Creatinine Ratio 11.3 (8-20); Calcium 8.6 mg/dL (8.6-10.3); EGFR African American 139.4 (>60); EGFR Non-African American 115.2 (>60); Globulin 3.2 g/dL (2-4); Potassium 3.9 mmol/L (3.5-5.0); Total Bilirubin 1.4 mg/dL (0.2-1.0); Total Protein 6.3 g/dL (6.4-8.9)
[2020-10-08] MEDS ORDERED: Cefepime 2 GM VIAL ONE (16:00)
[2020-10-08] MEDS ORDERED: Morphine 4 MG/ML VIAL (1 ml) IV PRN (16:45)
[2020-10-08] MEDS ORDERED: NS 0.9% 1000 ml BAG 1,000 ML IV SCH (16:45)
[2020-10-08] MEDS ORDERED: Ondansetron 4 mg VIAL 2 MG/ML 2 ml VIAL IV PRN (16:46)
[2020-10-08] MEDS: NS 0.9% 1000 ml BAG 1,000 ML IV SCH (19:10)
[2020-10-08] MEDS: Enoxaparin 40 MG/0.4 ML SYR SUBCUT SCH (20:42)
[2020-10-08] MEDS: Linezolid 600 MG IVPREMIX(*) 600 MG/300 ML BAG IVPB SCH (20:44)
[2020-10-08 21:18] LABS: Urine Appearance Clear; Urine Bilirubin Negative (Negative); Urine Blood 1+ (Negative); Urine Color Yellow; Urine Glucose Negative (Negative); Urine Ketones Negative (Negative); Urine Nitrite Negative (Negative); Urine Protein Negative (Negative); Urine Specific Gravity 1.004 (1.002-1.030); Urine Urobilinogen Negative (Negative)
[2020-10-08 21:22] LABS: Urine Bacteria Absent (Absent); Urine Red Blood Cell Trace(0-2/hpf) (Absent); Urine Squamous Epithelial Cell Present (Absent); Urine White Blood Cell Trace(0-5/hpf) (Absent)
[2020-10-09 05:46] LABS: ABS Eosinophils 0.2 10^3/ul (0-0.6); ABS Lymphocytes 1.7 10^3/ul (1.0-4.8); ABS Monocytes 1.3 10^3/ul (0-0.8); ABS Neutrophils 17.9 10^3/ul (1.5-7.7); Eosinophil % 0.8 %; Hematocrit 26 % (42-52); Hemoglobin 8.6 g/dL (14.0-18.0); Lymphocyte % 7.9 %; Mean Corpuscular HGB Conc 33 g/dL (31-36); Mean Corpuscular Hemoglobin 30 pg (27-31); Mean Corpuscular Volume 89 fL (80-94); Platelet Count 310 10^3/uL (150-450); Red Blood Count 2.91 10^6 /uL (4.18-5.48); Red Cell Distribution Width 20 % (10-15)
[2020-10-09] MEDS: Cefepime 2 GM in Dextrose 2 GM/50 ML BAG IV SCH ×2 (05:54→17:46)
[2020-10-09 06:04] LABS: Albumin 2.7 g/dL (3.2-5.2); BUN/Creatinine Ratio 12.9 (8-20); Calcium 8.1 mg/dL (8.6-10.3); EGFR African American 141.7 (>60); EGFR Non-African American 117.1 (>60); Globulin 2.6 g/dL (2-4); Potassium 3.9 mmol/L (3.5-5.0); Total Bilirubin 1.3 mg/dL (0.2-1.0); Total Protein 5.3 g/dL (6.4-8.9)
[2020-10-09] MEDS: NS 0.9% 1000 ml BAG 1,000 ML IV SCH ×2 (07:04→23:53)
[2020-10-09] MEDS: Linezolid 600 MG IVPREMIX(*) 600 MG/300 ML BAG IVPB SCH (08:07)
[2020-10-09] MEDS ORDERED: Lidocaine 1% w EPI 1:100,000 MDV 20 ML VIAL ONE (08:08)
[2020-10-09] MEDS ORDERED: Linezolid 600 MG IVPREMIX(*) 600 MG/300 ML BAG IVPB SCH ×2 (12:00→21:00)
[2020-10-09] MEDS: Enoxaparin 40 MG/0.4 ML SYR SUBCUT SCH (20:50)
[2020-10-10] MEDS: Cefepime 2 GM in Dextrose 2 GM/50 ML BAG IV SCH ×2 (05:46→17:46)
[2020-10-10 08:32] LABS: Hematocrit 28 % (42-52); Hemoglobin 9.1 g/dL (14.0-18.0); Mean Corpuscular HGB Conc 33 g/dL (31-36); Mean Corpuscular Hemoglobin 29 pg (27-31); Mean Corpuscular Volume 89 fL (80-94); Mean Platelet Volume 6.8 fL (7.4-10.4); Platelet Count 305 10^3/uL (150-450); Red Blood Count 3.11 10^6 /uL (4.18-5.48); Red Cell Distribution Width 20 % (10-15); White Blood Count 18.2 10^3/uL (3.5-10.8)
[2020-10-10 08:51] LABS: Albumin 2.6 g/dL (3.2-5.2); BUN/Creatinine Ratio 14.7 (8-20); EGFR African American 146.5 (>60); EGFR Non-African American 121.1 (>60); Globulin 2.7 g/dL (2-4); Potassium 3.7 mmol/L (3.5-5.0); Total Bilirubin 1.3 mg/dL (0.2-1.0); Total Protein 5.3 g/dL (6.4-8.9)
[2020-10-10 09:22] LABS: ABS Basophils 0.1 10^3/ul (0-0.2); ABS Eosinophils 0.5 10^3/ul (0-0.6); ABS Lymphocytes 1.1 10^3/ul (1.0-4.8); ABS Neutrophils 14.6 10^3/ul (1.5-7.7); Eosinophil % 2.7 %; Lymphocyte % 5.9 %
[2020-10-10] MEDS: NS 0.9% 1000 ml BAG 1,000 ML IV SCH (14:16)
[2020-10-10] MEDS: Enoxaparin 40 MG/0.4 ML SYR SUBCUT SCH (19:10)
[2020-10-11] MEDS: Cefepime 2 GM in Dextrose 2 GM/50 ML BAG IV SCH ×2 (05:19→18:06)
[2020-10-11] MEDS: NS 0.9% 1000 ml BAG 1,000 ML IV SCH ×2 (05:19→21:34)
[2020-10-11 06:37] LABS: Albumin 2.8 g/dL (3.2-5.2); Albumin/Globulin Ratio 0.9 (1-3); BUN/Creatinine Ratio 13.2 (8-20); Calcium 8.2 mg/dL (8.6-10.3); EGFR African American 146.5 (>60); EGFR Non-African American 121.1 (>60); Globulin 3.2 g/dL (2-4); Potassium 3.8 mmol/L (3.5-5.0); Total Bilirubin 1.6 mg/dL (0.2-1.0)
[2020-10-11 07:28] LABS: ABS Basophils 0.1 10^3/ul (0-0.2); ABS Eosinophils 0.5 10^3/ul (0-0.6); ABS Lymphocytes 1.2 10^3/ul (1.0-4.8); ABS Monocytes 1.8 10^3/ul (0-0.8); ABS Neutrophils 17.4 10^3/ul (1.5-7.7); Eosinophil % 2.6 %; Hematocrit 32 % (42-52); Hemoglobin 10.3 g/dL (14.0-18.0); Lymphocyte % 5.8 %; Mean Corpuscular HGB Conc 33 g/dL (31-36); Mean Corpuscular Hemoglobin 29 pg (27-31); Mean Corpuscular Volume 89 fL (80-94); Mean Platelet Volume 7.4 fL (7.4-10.4); Platelet Count 339 10^3/uL (150-450); Red Blood Count 3.56 10^6 /uL (4.18-5.48); Red Cell Distribution Width 21 % (10-15)
[2020-10-11] MEDS: Polyethylene Glycol 3350 17 GM PACKET PO SCH (16:03)
[2020-10-11] MEDS: Enoxaparin 40 MG/0.4 ML SYR SUBCUT SCH (19:46)
[2020-10-12] MEDS: Cefepime 2 GM in Dextrose 2 GM/50 ML BAG IV SCH ×2 (05:21→17:10)
[2020-10-12 05:30] LABS: Hematocrit 30 % (42-52); Hemoglobin 9.6 g/dL (14.0-18.0); Mean Corpuscular HGB Conc 33 g/dL (31-36); Mean Corpuscular Hemoglobin 29 pg (27-31); Mean Corpuscular Volume 89 fL (80-94); Mean Platelet Volume 7.1 fL (7.4-10.4); Platelet Count 301 10^3/uL (150-450); Red Blood Count 3.33 10^6 /uL (4.18-5.48); Red Cell Distribution Width 20 % (10-15); White Blood Count 16.5 10^3/uL (3.5-10.8)
[2020-10-12 05:32] LABS: ABS Basophils 0.1 10^3/ul (0-0.2); ABS Eosinophils 0.6 10^3/ul (0-0.6); ABS Lymphocytes 1.1 10^3/ul (1.0-4.8); ABS Monocytes 1.9 10^3/ul (0-0.8); ABS Neutrophils 12.8 10^3/ul (1.5-7.7); Eosinophil % 3.7 %; Lymphocyte % 6.7 %
[2020-10-12] MEDS: Polyethylene Glycol 3350 17 GM PACKET PO SCH (07:54)
[2020-10-12] MEDS: Morphine 2 MG/ML SYRINGE IV PRN (16:00)
[2020-10-12] MEDS: Enoxaparin 40 MG/0.4 ML SYR SUBCUT SCH (19:08)
[2020-10-13] MEDS: Cefepime 2 GM in Dextrose 2 GM/50 ML BAG IV SCH ×2 (06:15→20:00)
[2020-10-13] MEDS: Polyethylene Glycol 3350 17 GM PACKET PO SCH (07:52)
[2020-10-13 09:30] LABS: Hematocrit 29 % (42-52); Hemoglobin 9.4 g/dL (14.0-18.0); Mean Corpuscular HGB Conc 33 g/dL (31-36); Mean Corpuscular Hemoglobin 29 pg (27-31); Mean Corpuscular Volume 87 fL (80-94); Mean Platelet Volume 6.8 fL (7.4-10.4); Platelet Count 270 10^3/uL (150-450); Red Cell Distribution Width 20 % (10-15); White Blood Count 19.1 10^3/uL (3.5-10.8)
[2020-10-13 09:50] LABS: Albumin 2.5 g/dL (3.2-5.2); Albumin/Globulin Ratio 0.9 (1-3); BUN/Creatinine Ratio 15.6 (8-20); EGFR African American 157.1 (>60); EGFR Non-African American 129.8 (>60); Globulin 2.9 g/dL (2-4); Potassium 3.4 mmol/L (3.5-5.0); Total Bilirubin 1.3 mg/dL (0.2-1.0); Total Protein 5.4 g/dL (6.4-8.9)
[2020-10-13 10:37] LABS: ABS Basophils 0.1 10^3/ul (0-0.2); ABS Eosinophils 0.3 10^3/ul (0-0.6); ABS Lymphocytes 0.9 10^3/ul (1.0-4.8); ABS Monocytes 2.1 10^3/ul (0-0.8); ABS Neutrophils 15.7 10^3/ul (1.5-7.7); Eosinophil % 1.6 %; Lymphocyte % 4.5 %
[2020-10-13] MEDS: KCL 20 MEQ/100 ML IVPREMIX 20 MEQ/100 ML BAG IV SCH ×2 (12:38→16:27)
[2020-10-13] MEDS: Enoxaparin 40 MG/0.4 ML SYR SUBCUT SCH (22:05)
[2020-10-13] MEDS: Morphine 2 MG/ML SYRINGE IV PRN (22:05)
[2020-10-13] MEDS: Magnesium Hydroxide LIQ 30 ML UDC PO PRN (22:06)
[2020-10-14 05:41] LABS: Hematocrit 30 % (42-52); Hemoglobin 9.9 g/dL (14.0-18.0); Mean Corpuscular HGB Conc 33 g/dL (31-36); Mean Corpuscular Hemoglobin 29 pg (27-31); Mean Corpuscular Volume 88 fL (80-94); Mean Platelet Volume 7.2 fL (7.4-10.4); Platelet Count 284 10^3/uL (150-450); Red Blood Count 3.44 10^6 /uL (4.18-5.48); Red Cell Distribution Width 20 % (10-15); White Blood Count 16.9 10^3/uL (3.5-10.8)
[2020-10-14 05:44] LABS: ABS Basophils 0.1 10^3/ul (0-0.2); ABS Eosinophils 0.6 10^3/ul (0-0.6); ABS Lymphocytes 1.5 10^3/ul (1.0-4.8); ABS Monocytes 2.1 10^3/ul (0-0.8); ABS Neutrophils 12.7 10^3/ul (1.5-7.7); Eosinophil % 3.4 %; Lymphocyte % 8.6 %
[2020-10-14 05:59] LABS: Albumin 2.5 g/dL (3.2-5.2); Albumin/Globulin Ratio 0.9 (1-3); BUN/Creatinine Ratio 16.7 (8-20); EGFR African American 169.3 (>60); EGFR Non-African American 139.9 (>60); Globulin 2.8 g/dL (2-4); Potassium 3.8 mmol/L (3.5-5.0); Total Bilirubin 1.2 mg/dL (0.2-1.0); Total Protein 5.3 g/dL (6.4-8.9)
[2020-10-14] MEDS: Cefepime 2 GM in Dextrose 2 GM/50 ML BAG IV SCH (06:03)
[2020-10-14] MEDS: Magnesium Hydroxide LIQ 30 ML UDC PO PRN (06:03)
[2020-10-14] MEDS: Morphine 2 MG/ML SYRINGE IV PRN ×2 (06:03→21:18)
[2020-10-14 10:10] LABS: C Reactive Protein 139.97 mg/L (<8.01)
[2020-10-14] MEDS: Polyethylene Glycol 3350 17 GM PACKET PO SCH (10:41)
[2020-10-14 11:26] LABS: C Reactive Protein 135.06 mg/L (<8.01)
[2020-10-14] MEDS: Enoxaparin 40 MG/0.4 ML SYR SUBCUT SCH (21:17)
[2020-10-15 06:01] LABS: Hematocrit 28 % (42-52); Hemoglobin 9.3 g/dL (14.0-18.0); Mean Corpuscular HGB Conc 33 g/dL (31-36); Mean Corpuscular Hemoglobin 29 pg (27-31); Mean Corpuscular Volume 87 fL (80-94); Mean Platelet Volume 7.2 fL (7.4-10.4); Platelet Count 263 10^3/uL (150-450); Red Blood Count 3.21 10^6 /uL (4.18-5.48); Red Cell Distribution Width 20 % (10-15); White Blood Count 18.7 10^3/uL (3.5-10.8)
[2020-10-15 06:44] LABS: ABS Basophils 0.1 10^3/ul (0-0.2); ABS Eosinophils 0.8 10^3/ul (0-0.6); ABS Lymphocytes 1.4 10^3/ul (1.0-4.8); ABS Monocytes 2.4 10^3/ul (0-0.8); Eosinophil % 4.1 %; Lymphocyte % 7.4 %
[2020-10-15] MEDS: Polyethylene Glycol 3350 17 GM PACKET PO SCH (07:30)
[2020-10-15 07:37] LABS: Albumin 2.5 g/dL (3.2-5.2); Calcium 8.1 mg/dL (8.6-10.3); Potassium 4.1 mmol/L (3.5-5.0); Total Bilirubin 1.1 mg/dL (0.2-1.0)
[2020-10-15 07:43] LABS: Albumin/Globulin Ratio 0.9 (1-3); BUN/Creatinine Ratio 17.7 (8-20); C Reactive Protein 147.08 mg/L (<8.01); EGFR Non-African American 134.7 (>60); Globulin 2.9 g/dL (2-4); Total Protein 5.4 g/dL (6.4-8.9)
[2020-10-15 12:03] VITALS: BP 127/65
== END 2020-10-15 13:00 | disposition home or self-care (01) | DRG 721 ==
LOC: CHOA 13:29 → MED 16:14
PROVIDERS: ADMIT Internal Medicine Hematology & Oncology; ATTEND Internal Medicine Hematology & Oncology

== ENCOUNTER 2020-10-29 13:46 | Inpatient (IN) ==
[2020-10-29 14:40] LABS: ABS Basophils 0.1 10^3/ul (0-0.2); ABS Lymphocytes 1.5 10^3/ul (1.0-4.8); ABS Monocytes 2.2 10^3/ul (0-0.8); ABS Neutrophils 32.9 10^3/ul (1.5-7.7); Eosinophil % 0.1 %; Hematocrit 34 % (42-52); Hemoglobin 11.2 g/dL (14.0-18.0); Mean Corpuscular HGB Conc 33 g/dL (31-36); Mean Corpuscular Hemoglobin 30 pg (27-31); Mean Corpuscular Volume 90 fL (80-94); Mean Platelet Volume 8.6 fL (7.4-10.4); Platelet Count 141 10^3/uL (150-450); Red Blood Count 3.79 10^6 /uL (4.18-5.48); Red Cell Distribution Width 23 % (10-15); White Blood Count 36.7 10^3/uL (3.5-10.8)
[2020-10-29 15:07] LABS: ALT 47 U/L (7-52); Albumin 2.8 g/dL (3.2-5.2); Albumin/Globulin Ratio 0.8 (1-3); Alkaline Phosphatase 761 U/L (34-104); Blood Urea Nitrogen 22 mg/dL (6-24); CO2 Carbon Dioxide 22 mmol/L (22-32); Calcium 10.3 mg/dL (8.6-10.3); Chloride 98 mmol/L (101-111); EGFR African American 79.1 (>60); EGFR Non-African American 65.4 (>60); Globulin 3.5 g/dL (2-4); Glucose 142 mg/dL (70-100); Sodium 130 mmol/L (135-145); Total Protein 6.3 g/dL (6.4-8.9)
[2020-10-29 15:11] LABS: Anion Gap 10 mmol/L (2-11)
[2020-10-29 15:42] LABS: Polychromasia 1+
[2020-10-29] MEDS ORDERED: Lidocaine 2% PF 5 ML VIAL ONE (17:01)
[2020-10-29] MEDS ORDERED: LORazepam 2 mg VIAL 1 ml IV PUSH PRN (17:17)
[2020-10-29] MEDS ORDERED: Ondansetron ODT 4 mg TAB 4 MG TAB SL PRN (17:17)
[2020-10-29] MEDS ORDERED: Lorazepam PYXIS KEY PRN (17:17)
[2020-10-29] MEDS ORDERED: NS 0.9% 1000 ml BAG 1,000 ML IV SCH (17:30)
[2020-10-29 17:55] LABS: Body Fluid Source Peritonial Fluid
[2020-10-29 19:43] LABS: Potassium Redraw 4.5 mmol/L (3.5-5.0)
[2020-10-29 22:11] LABS: Body Fluid Other Cells 22
[2020-10-29 22:12] LABS: Body Fluid Mono 13 %
[2020-10-29] MEDS ORDERED: NS 0.9% 1,000 ML IV ONE (22:15)
[2020-10-29 23:02] LABS: Urine Appearance Clear; Urine Bilirubin 1+ (Negative); Urine Blood 2+ (Negative); Urine Color Amber; Urine Glucose Negative (Negative); Urine Ketones Negative (Negative); Urine Nitrite Negative (Negative); Urine Protein 1+(30 mg/dL) (Negative); Urine Specific Gravity 1.023 (1.002-1.030); Urine Urobilinogen Negative (Negative)
[2020-10-29 23:06] LABS: Urine Bacteria Absent (Absent); Urine Red Blood Cell 3+(>10/hpf) (Absent); Urine Squamous Epithelial Cell Present (Absent); Urine Uric Acid Crystals Present (Absent); Urine White Blood Cell 1+(6-10/hpf) (Absent)
[2020-10-29] MEDS ORDERED: NS 0.9% 1,000 ML IV SCH (23:45)
[2020-10-30 08:03] LABS: ABS Eosinophils 0.2 10^3/ul (0-0.6); ABS Lymphocytes 2.1 10^3/ul (1.0-4.8); ABS Monocytes 2.9 10^3/ul (0-0.8); ABS Neutrophils 32.6 10^3/ul (1.5-7.7); Eosinophil % 0.6 %; Hematocrit 34 % (42-52); Hemoglobin 10.8 g/dL (14.0-18.0); Lymphocyte % 5.5 %; Mean Corpuscular HGB Conc 32 g/dL (31-36); Mean Corpuscular Hemoglobin 29 pg (27-31); Mean Corpuscular Volume 91 fL (80-94); Red Cell Distribution Width 23 % (10-15); White Blood Count 37.8 10^3/uL (3.5-10.8)
[2020-10-30 08:04] LABS: Mean Platelet Volume 8.7 fL (7.4-10.4); Platelet Count 97 10^3/uL (150-450)
[2020-10-30 08:20] LABS: Albumin 2.5 g/dL (3.2-5.2); Albumin/Globulin Ratio 0.8 (1-3); Calcium 10.2 mg/dL (8.6-10.3); EGFR African American 88.7 (>60); EGFR Non-African American 73.3 (>60); Globulin 3.2 g/dL (2-4); Potassium 4.6 mmol/L (3.5-5.0); Total Bilirubin 5.7 mg/dL (0.2-1.0); Total Protein 5.7 g/dL (6.4-8.9)
[2020-10-30] MEDS: Magnesium Hydroxide LIQ 30 ML UDC PO SCH ×2 (11:01→19:46)
[2020-10-31] MEDS: Morphine ORAL CONCENTRATE 5 MG/0.25 ML ORAL.SYRIN PO PRN ×3 (02:09→22:27)
[2020-10-31] MEDS: Magnesium Hydroxide LIQ 30 ML UDC PO SCH ×2 (08:18→20:26)
[2020-10-31 23:01] VITALS: BP 146/98
[2020-11-01] MEDS: Morphine ORAL CONCENTRATE 5 MG/0.25 ML ORAL.SYRIN PO PRN ×2 (02:20→04:20)
[2020-11-01] MEDS ORDERED: Morphine 2 MG/ML SYRINGE ONE (05:26)
[2020-11-01] MEDS ORDERED: Morphine 2 MG/ML SYRINGE IV ONE (05:30)
== END 2020-11-01 09:18 | disposition expired | DRG 279 ==
LOC: CHOA 13:46 → MEDTELE 17:10
PROVIDERS: ADMIT Internal Medicine Hematology & Oncology; ATTEND Internal Medicine Hematology & Oncology